=== PATIENT | female | born 1965 | race Caucasian/White ===

== ENCOUNTER 2016-07-12 10:35 | Emergency (ER) | payer BC ==
[~2016-07-12] VITALS: Ht 170.2 cm; Wt 80.0 kg
[2016-07-12 10:37] VITALS: BP 117/60; PULSE 62; RESP 18; TEMP 98.2; O2SAT 99
[2016-07-12] MEDS ORDERED: KETOROLAC TROMETHAMINE 60 MG/2 ML (IM) VIAL IM ONE (11:00)
[2016-07-12] MEDS ORDERED: KETOROLAC TROMETHAMINE 30 MG/ML (IVP) VIAL IV PUSH ONE (11:00)
--- NOTE | 2016-07-12 11:04 | PD ---
HPI Chief Complaint: Abdominal Pain Time Seen by Provider: 11:02 Travel History International Travel<30 days: No Contact w/Intl Traveler<30days: No Traveled to known affect area: No History of Present Illness HPI Patient is a 50-year-old female presenting to the emergency department for evaluation of abdominal cramping. States it started at 9 AM this morning, she reports the cramps as all over and rates her pain as a 9 out of 10. She states that she is currently on her menstrual cycle, she reports using tampons yesterday because [place] the beach, she does not normally use tampons only pads. She denies any nausea, vomiting, fever, chills, changes in bowel habits. Patient further denies a significant past medical history, no previous abdominal surgery. She reports irregular menstrual cycles monthly. She denies any history of cramping this severe or in general. She has not taken any medications to alleviate the cramping this morning. PFSH Past Medical History Medical History: Denies Significant Hx ?: Not LMP: 07/12/2016 Past Surgical History Other Surgery: Yes (jaw surgery) Social History Alcohol Use: Yes (occ) Tobacco Use: No Substance Use: No Allergies-Medications (Allergen,Severity, Reaction): Coded Allergies: No Known Allergies (Unverified , 07/12/16) Reported Meds & Prescriptions Reported Meds & Active Scripts Active Ibuprofen 800 Mg Tab 800 Mg PO Q6HR PRN Review of Systems Except as stated in HPI: all other systems reviewed are Neg Gastrointestinal: Positive: Abdominal Pain (cramping) Genitourinary: Positive: Vaginal Bleeding (currently on her cycle) Physical Exam Narrative GENERAL: Well-developed, well-nourished, alert female. Appears uncomfortable, in no acute distress. SKIN: Warm and dry. HEAD: Atraumatic. Normocephalic. EYES: Pupils equal and round. No scleral icterus. No injection or drainage. ENT: No nasal bleeding or discharge. Mucous membranes pink and moist. NECK: Trachea midline. No JVD. CARDIOVASCULAR: Regular rate and rhythm. RESPIRATORY: No accessory muscle use. Clear to auscultation. Breath sounds equal bilaterally. GASTROINTESTINAL: Abdomen soft, non-tender, nondistended. Hepatic and splenic margins not palpable. Positive bowel sounds, no rebound, no guarding MUSCULOSKELETAL: Extremities without clubbing, cyanosis, or edema. No obvious deformities. NEUROLOGICAL: Awake and alert. No obvious cranial nerve deficits. Motor grossly within normal limits. Five out of 5 muscle strength in the arms and legs. Normal speech. PSYCHIATRIC: Appropriate mood and affect; insight and judgment normal. Data Data Last Documented VS Vital Signs Date Time Temp Pulse Resp B/P Pulse Ox O2 Delivery O2 Flow Rate FiO2 07/12/16 12:20 16 07/12/16 10:37 98.2 62 117/60 99 Orders Ketorolac Inj (Toradol Inj) (07/12/16 11:00) Complete Blood Count With Diff (07/12/16 11:00) Basic Metabolic Panel (Bmp) (07/12/16 11:00) Iv Access Insert/Monitor (07/12/16 11:00) Ketorolac Inj (Toradol Inj) (07/12/16 11:00) Us Pelvis Comp W Transvaginal (07/12/16 ) Labs Laboratory Tests Test 07/12/16 11:09 White Blood Count 13.7 TH/MM3 Red Blood Count 4.71 MIL/MM3 Hemoglobin 14.6 GM/DL Hematocrit 42.4 % Mean Corpuscular Volume 89.9 FL Mean Corpuscular Hemoglobin 30.9 PG Mean Corpuscular Hemoglobin 34.4 % Concent Red Cell Distribution Width 13.3 % Platelet Count 215 TH/MM3 Mean Platelet Volume 8.8 FL Neutrophils (%) (Auto) 89.3 % Lymphocytes (%) (Auto) 4.5 % Monocytes (%) (Auto) 5.4 % Eosinophils (%) (Auto) 0.4 % Basophils (%) (Auto) 0.4 % Neutrophils # (Auto) 12.2 TH/MM3 Lymphocytes # (Auto) 0.6 TH/MM3 Monocytes # (Auto) 0.7 TH/MM3 Eosinophils # (Auto) 0.1 TH/MM3 Basophils # (Auto) 0.1 TH/MM3 CBC Comment DIFF FINAL Differential Comment Sodium Level 141 MEQ/L Potassium Level 4.1 MEQ/L Chloride Level 107 MEQ/L Carbon Dioxide Level 28.1 MEQ/L Anion Gap 6 MEQ/L Blood Urea Nitrogen 11 MG/DL Creatinine 0.90 MG/DL Estimat Glomerular Filtration 66 ML/MIN Rate Random Glucose 116 MG/DL Calcium Level 8.6 MG/DL MDM Medical Decision Making Medical Screen Exam Complete: Yes Emergency Medical Condition: Yes Interpretation(s) Vital Signs Date Time Temp Pulse Resp B/P Pulse Ox O2 Delivery O2 Flow Rate FiO2 07/12/16 10:37 98.2 62 18 117/60 99 Differential Diagnosis Fibroid versus endometritis versus menstrual cramps versus ovarian cyst versus ovarian torsion versus other Narrative Course Patient's 50-year-old female who is currently on her menstrual cycle presenting to the emergency for evaluation of abdominal cramping. Patient has had normal cycles on a monthly basis, she is not menopausal at this time. She denies any history of cramping which is why she presented. Initially she thought it was related to the tampons to use yesterday. Patient change tampon twice throughout the day and then use a sanitary napkin in the evening and at night. Abdominal exam is benign, patient is nontender to palpation. Labs ordered and pending, IV access initiated, Toradol given for pain. Ultrasound of the pelvis shows the uterus has a tiny fluid echogenicity or cystic area in the central body. Potentially fluid in the endometrial canal. The right ovary is not visualized, the left ovary is unremarkable. There is no free fluid noted. CBC with a mildly elevated white count at 13.7 with a left shift BMP is unremarkable. Patient's vital signs are stable. She reports improvement in cramping after Toradol administration. Discussed results of labs and imaging with my attending physician, results of ultrasound were also discussed with OB hospitalist Dr. dozier. She recommended further imaging if patient was in significant pain, patient has not been in significant pain. She did recommend a medication called Lysteda 650 mg ; 2 tablets 3 times a day for up to 5 days, this will help with patient's menstrual cramps as well as lighten the flow of her cycle. Patient will be provided with a prescription for this as well as ibuprofen. She is advised to follow-up with her business office specialist upon return home to [place]. She was advised to return to emergency department sooner for any new or worsening symptoms in the interim. Patient verbalized understanding of these instructions. Patient is stable for discharge. Diagnosis Primary Impression: Severe menstrual cramps Referrals: [facility] [employer] Patient Instructions: General Instructions Additional Instructions: Follow-up with a business office specialist Take medications as needed and as directed for pain Return to emergency department for any new or worsening symptoms Med/Other Pt SpecificInfo: Prescription(s) given Scripts Tranexamic Acid (Lysteda)650 Mg Tab1,300 Mg PO TID PRN (CRAMPS) 5 Days Ref 0 Prov:Yesica Morel 07/12/16 Ibuprofen 800 Mg [id number] Mg PO Q6HR PRN (PAIN) #40 TAB Ref 0 Prov:Yesica Morel 07/12/16 Yesica Morel July 12, 2016 11:04
[2016-07-12 11:23] LABS: AUTOMATED NEUTROPHIL # 12.2 TH/MM3 (1.8-7.7); BASOPHIL # 0.1 TH/MM3 (0-0.2); BASOPHIL % 0.4 % (0.0-2.0); EOSINOPHIL # 0.1 TH/MM3 (0-0.4); EOSINOPHIL % 0.4 % (0.0-4.0); HEMATOCRIT 42.4 % (35.0-46.0); HEMO FLAGS DIFF FINAL; LYMPH % 4.5 % (9.0-44.0); LYMPHOCYTE # 0.6 TH/MM3 (1.0-4.8); MEAN CELL VOLUME 89.9 FL (80.0-100.0); MEAN CORPUSCULAR HEMOGLOBIN 30.9 PG (27.0-34.0); MEAN CORPUSCULAR HGB CONC 34.4 % (32.0-36.0); MONO % 5.4 % (0.0-8.0); NEUT % 89.3 % (16.0-70.0); PLATELET COUNT 215 TH/MM3 (150-450); RED BLOOD COUNT 4.71 MIL/MM3 (4.00-5.30); RED CELL DISTRIBUTION WIDTH 13.3 % (11.6-17.2); WHITE BLOOD COUNT 13.7 TH/MM3 (4.0-11.0)
[2016-07-12 11:45] LABS: BICARBONATE 28.1 MEQ/L (21.0-32.0); POTASSIUM 4.1 MEQ/L (3.5-5.1)
[2016-07-12 12:20] VITALS: RESP 16
--- NOTE | 2016-07-12 12:24 | RADRPT ---
EXAM DATE/TIME: 07/12/2016 11:18 [facility] COMPARISON: No previous studies available for comparison. INDICATIONS : Pelvic pain. MEDICAL HISTORY : Abdominal cramping. SURGICAL HISTORY : None. ENCOUNTER: Initial ACUITY: 1 day PAIN SCORE: 6/10 LOCATION: Bilateral pelvis MEASUREMENTS: UTERUS: 8.4 x 4.6 x 4.1 cm ENDOMETRIAL STRIPE: 6 mm RIGHT OVARY: Non visualized LEFT OVARY: 4.0 x 3.5 x 3.2 cm FINDINGS: UTERUS: A tiny fluid echogenicity or cystic area is seen in the central body of the uterus, potentially fluid in the endometrial canal. RIGHT OVARY: Not visualized LEFT OVARY: Unremarkable. Color-flow not clearly demonstrated by Doppler. This could be for technical reasons. Co rrelation recommended. MISCELLANEOUS: No free fluid. CONCLUSION: Abnormal study Trino Urbano MD on July 12, 2016 at 12:16 Board Certified Radiologist. This report was verified electronically.
[2016-07-12] MEDS ORDERED: IBUP800T23 PO (12:37)
[2016-07-12] MEDS ORDERED: TRAN1TAB22 PO (13:11)
== END 2016-07-12 13:34 | disposition home or self-care (01) ==
LOC: NEPD 10:35
DX: N94.6 Dysmenorrhea, unspecified (principal)
CPT/HCPCS: 76830; 76856; 80048; 85025; 96374; 99284; J1885